=== PATIENT | female | born 1945 ===

== ENCOUNTER 2021-03-16 05:35 | Day surgery (SDC) | payer OTHER ==
[~2021-03-16 05:35] MED LIST: FORTAMET500 MG PO; GLIPIZIDE XL2.5 MG PO; LIPITOR20 MG PO; SYNTHROID75 MCG PO; ZESTRIL10 M1 PO
[2021-03-16] MEDS ORDERED: MACROBID 100 M100 MG PO (09:46)
[2021-03-16] MEDS ORDERED: ULTRACET PO (09:47)
== END 2021-03-16 14:30 | disposition home or self-care (01) ==
LOC: CIR.AMB 05:35
PROVIDERS: ATTEND Obstetrics & Gynecology Gynecology
DX: N81.5 Vaginal enterocele (principal); N81.6 Rectocele; Z20.822 Contact with and (suspected) exposure to COVID-19